=== PATIENT | male | born 1955 | race Caucasian/White ===

== ENCOUNTER 2020-12-13 11:58 | Outpatient (NON) | payer OTHER, SELFPAY ==
[2020-12-13 21:58] LABS: SARS-CoV-2 RNA PCR Negative
== END 2020-12-13 11:59 ==
PROVIDERS: Visit Provider Family Medicine
DX: Z20.822 Contact with and (suspected) exposure to COVID-19 (principal); R50.9 Fever, unspecified
CPT/HCPCS: C9803; U0003; U0005

== ENCOUNTER 2022-09-26 15:55 | Outpatient (CLI) | payer MEDICARE, SELFPAY ==
--- NOTE | ~2022-09-26 | XR_ITS ---
XR lumbar spine 2-3V DATE: 09/26/2022 16:16 INDICATION: Posterior right lower back pain radiating to right leg for 2 weeks. No injury. TECHNIQUE: AP, lateral, coned lateral lumbosacral views COMPARISON: None FINDINGS: Normal alignment of the lumbar spine. No fracture or bone destruction or spondylolisthesis. The lumbar pedicles are intact. There is mild degenerative disc disease at L2-3, L3-4 and L4-5 and moderately severe degenerative dis c disease at L5-S1. The sacroiliac joints are intact. IMPRESSION: Multilevel degenerative disc disease, particularly prominent at L5-S1 Reviewed, dictated and finalized at location A. IMPRESSION: Multilevel degenerative disc disease, particularly prominent at L5- S1
== END 2022-09-26 15:56 | disposition home or self-care (01) ==
LOC: ANHIMG 15:58
PROVIDERS: PCP Family Medicine; Visit Provider Nurse Practitioner Family
DX: M79.604 Pain in right leg (principal); M51.37 Other intervertebral disc degeneration, lumbosacral region
CPT/HCPCS: 72100

== ENCOUNTER 2022-10-16 09:04 | Outpatient (CLI) | payer MEDICARE, SELFPAY ==
--- NOTE | ~2022-10-16 | MR_ITS ---
EXAMINATION: MR lumbar spine wo con DATE: 10/16/2022 09:40 INDICATION: Low back pain with right-sided radiculopathy. TECHNIQUE: Magnetic resonance imaging (MRI) of the lumbar spine was performed without intravenous con trast. Sequences included sagittal T2-weighted FSE, sagittal T2-weighted FS FSE, sagittal T1-weighted FSE, and axial T2-weighted FSE. COMPARISON: Lumbar spine radiographs 09/26/2022 FINDINGS: Bone alignment is normal. There is mild chronic anterior wedging of T11 and T12 vertebral b odies. There is mildly decreased disc height from L2-L3 through L4-L5 and severely decreased disc hei ght at L5-S1. The distal spinal cord signal intensity is normal. The conus medullaris is at T12. The following disc levels are specifically discussed: L1-L2: The disc does not extend beyond the endplate margin. There is mild bilateral facet joint osteo arthritis. There is no neural foraminal stenosis. There is no central canal stenosis. L2-L3: The disc is bulging and has an annular fissure. There is mild bilateral facet joint osteoarthr itis. There is mild bilateral neural foraminal stenosis. There is mild central canal stenosis. L3-L4: The disc is bulging. There is mild bilateral facet joint osteoarthritis. There is mild bilater al neural foraminal stenosis. There is mild central canal stenosis. L4-L5: The disc is bulging and has an annular fissure. There is mild bilateral facet joint osteoarthr itis. There is mild bilateral neural foraminal stenosis. There is mild central canal stenosis. L5-S1: The disc is bulging and has an annular fissure. There is mild bilateral facet joint osteoarthr itis. There is mild bilateral neural foraminal stenosis. There is mild central canal stenosis. IMPRESSION: 1. Severe lower lumbar spondylosis. Reviewed, dictated and finalized at location A. [employer]
== END 2022-10-16 09:05 | disposition home or self-care (01) ==
PROVIDERS: PCP Family Medicine; Visit Provider Nurse Practitioner Family
DX: M47.26 Other spondylosis with radiculopathy, lumbar region (principal)
CPT/HCPCS: 72148

== ENCOUNTER 2023-10-13 08:33 | Outpatient (CLI) | payer MEDICARE, SELFPAY ==
--- NOTE | 2023-11-03 11:45 | WPDSLEEPSTUD ---
Sleep Study Date of Study: 10/13/23 Ordering Provider: Jo Ann Hummel MD Interpreting Physician: Julienne Navarro MD Sleep Study Type: Split Polysomnogram Height: 1.78 m Weight: 72.575 kg Body Mass Index: 22.9 Neck Circumference (inches): 14.75 [place]: 8 Reason for Sleep Study Frequent nighttime awakenings, loud snoring, witnessed apnea Sleep History Tru Haskins is a 68-year-old man with loud snoring. He rarely awakens from sleep feeling short of breath. He frequently wakes at night with heartburn, belching or coughing.??He frequently snores, frequently snores loudly enough that others complain. He rarely has trouble sleeping when he has a cold. He occasionally wakes up gasping for breath during the night. He rarely has breathing problems at night. He rarely sweats excessively at night. He never notices his heart pounding or beating irregularly during the night. He rarely falls asleep during the day. He never falls asleep involuntarily, never falls asleep while driving. He never experiences loss of muscle tone with strong emotion. He never has daytime difficulty at work due to excessive sleepiness. He never feels paralyzed on waking or falling asleep. He occasionally experiences vivid dreams upon waking or falling asleep. He never feels afraid of going to sleep. He rarely has nightmares. He occasional recalls his dreams. He occasionally has thoughts racing through his mind. He rarely feels sad or depressed. He rarely feels anxiety. He never notices parts of his body jerk. He rarely kicks during the night. He occasionally feels crawling or aching feelings in his legs. He occasionally feels leg pain at night. He never has morning jaw pain, not sure if he grinds his teeth at night. He never feels bothered by pain during the day, rarely awakened by pain during the night. He occasionally wakes up feeling stiff in the morning, and he rarely wakes feeling sore or achy. He rarely awakens with pain in his neck, spine, or joints. Normal bedtime is 10:30 p.m., falling asleep quickly, a few minutes.. He wakes between 3 and 6 times during the night, rolls over to a different position and returns to sleep within 10 minutes.He typically gets 7 total hours but wakes frequently during the night hours of sleep per night. His wake up time is between 7:00 a.m. and 7:30 a.m.. on weekends, bedtime may be later, between 10:00 p.m. and 12 midnight, and he wakes a little later, between 8:00 a.m. and 9:00 a.m.. He takes naps in the day On weekends only, and a short nap lasting 10-15 minutes may be refreshing. He is often drowsy for 3 hours or longer after waking. He feels better in the morning compared to other times of day. Habits:??Tobacco: Never smoker Caffeine: 1 cup on average. Alcohol: 3 servings average Recreational substances: none PMFSH Past Medical History Medical History Asthma Dyslipidemia Essential (primary) hypertension GERD without esophagitis History of diverticulitis Idiopathic gout no flare ups and not on meds Intermittent low back pain Prediabetes Surgical History Surgical History History of left inguinal hernia repair 2008 History of surgical removal of pilonidal cyst 1975 Family History Family History Father Family history of lymphoma Social History Social History Smoking status: Never smoker Second hand tobacco smoke exposure: No Alcohol intake: current Alcohol use details: daily Substance use: never Substance use type: does not use Lack of Transportation: No Lack of Food: Never True Current Housing: I Have Housing Concerned About Future Housing: No Difficulty Paying Gas/Electric Bills: No Difficulty Paying for Meds: No Currently Unemployed:
[2023-11-03 12:07] VITALS: BMI 22.9
== END 2023-10-14 07:22 | disposition home or self-care (01) ==
LOC: ANHCSM 08:34
PROVIDERS: PCP Family Medicine; Visit Provider Family Medicine
DX: R29.818 Other symptoms and signs involving the nervous system (principal); R40.0 Somnolence
CPT/HCPCS: 95811

== ENCOUNTER 2024-03-10 09:51 | Outpatient (CLI) | payer MEDICARE, SELFPAY ==
[2024-03-10 12:54] LABS: Hemoglobin A1C 5.8 % (<5.7)
== END 2024-03-10 09:52 | disposition home or self-care (01) ==
PROVIDERS: PCP Family Medicine; Visit Provider Family Medicine
DX: R73.03 Prediabetes (principal)
CPT/HCPCS: 36415; 83036

== ENCOUNTER 2025-03-28 09:58 | Outpatient (CLI) | payer MEDICARE, SELFPAY ==
--- NOTE | ~2025-03-28 | XR_ITS ---
XR shoulder RT min 2V Ordering provider: Skye Hummel MD History: . M25.511 - Pain in right shoulder . Comparison: None. FINDINGS: BONES: No acute fracture or dislocation. JOINT SPACES: The acromioclavicular joint shows mild osteoarthritic changes. The glenohumeral joint i s normal. SOFT TISSUES: Normal. IMPRESSION: No acute osseous abnormality right shoulder. Reviewed, dictated and finalized at location A.
== END 2025-03-28 09:59 | disposition home or self-care (01) ==
LOC: GOSHIMG 09:58
PROVIDERS: PCP Family Medicine; Visit Provider Family Medicine
DX: M25.511 Pain in right shoulder (principal); G89.29 Other chronic pain
CPT/HCPCS: 73030